=== PATIENT | female | born 1965 ===

== ENCOUNTER 2017-07-09 10:18 | Day surgery (SDC) | payer OTHER ==
[2017-07-09] MEDS ORDERED: Lactated Ringer's 1,000 ML IV ONE (13:00)
[2017-07-09] MEDS ORDERED: Midazolam 2 MG/2 ML VIAL ONE (13:09)
[2017-07-09] MEDS ORDERED: Lidocaine Hydrochloride 5 ML INJ ONE (13:09)
[2017-07-09] MEDS ORDERED: Propofol 10 mg/ml Inj (20 ML) ONE ×3 (13:09→13:36)
[2017-07-09 14:02] VITALS: TEMP 97.7
[2017-07-09 14:42] VITALS: BP 129/78; PULSE 80; RESP 16; O2SAT 98
== END 2017-07-09 15:00 | disposition home or self-care (01) ==
LOC: C.ENDO 10:18
PROVIDERS: ATTEND Internal Medicine Gastroenterology
DX: K29.50 Unspecified chronic gastritis without bleeding (principal); Z12.11 Encounter for screening for malignant neoplasm of colon; R10.13 Epigastric pain; K64.8 Other hemorrhoids; G47.33 Obstructive sleep apnea (adult) (pediatric); J45.909 Unspecified asthma, uncomplicated; I10 Essential (primary) hypertension; E03.9 Hypothyroidism, unspecified; M81.0 Age-related osteoporosis without current pathological fracture
CPT/HCPCS: 43239; 88305; G0121; J2250; J2704; J7120